=== PATIENT | male | born 1985 | race Caucasian/White ===

== ENCOUNTER 2019-07-19 07:48 | Outpatient (CLI) | payer BC, SELFPAY ==
[2019-07-19 08:31] LABS: Basophils Percent Auto 0.4 % (0.2-1.2); Eosinophils Absolute Auto 0.2 K/mm3 (0-0.3); Eosinophils Percent Auto 3.3 % (0-4.4); Hematocrit 46.9 % (42.0-52.0); Hemoglobin 16.5 g/dL (14.0-18.0); Immature Granulocyte Absolute 0.02 K/mm3 (0.00-0.031); Immature Granulocyte Percent A 0.3 % (0-0.5); Lymphocytes Absolute Auto 2.19 K/mm3 (0.9-3.2); Lymphocytes Percent Auto 30.5 % (18.3-44.2); Mean Corpuscular HGB Conc 35.2 g/dl (32-36); Mean Corpuscular Hemoglobin 31.3 pg (26-34); Mean Platelet Volume 9.6 fl (7.4-10.4); Monocytes Absolute Auto 0.6 K/mm3 (0.1-0.6); Monocytes Percent Auto 8.6 % (2.6-8.5); Neutrophils Absolute Auto 4.1 K/mm3 (1.3-6.7); Neutrophils Percent Auto 56.9 % (45.5-73.1); Platelet Count Result 289 k/mm3 (150-375); Red Blood Count 5.27 M/mm3 (4.6-6.20); Red Cell Distribution Width 11.9 % (11.5-14.5); White Blood Count 7.2 K/mm3 (4.5-10.0)
[2019-07-19 08:45] LABS: Hemoglobin A1C 7.4 % (<5.7)
[2019-07-19 08:47] LABS: Alanine Aminotransferase 25 U/L (4-50); Albumin Level 4.5 g/dL (3.5-5.1); Alkaline Phosphatase 93 U/L (38-126); Aspartate Amino Transferase 37 U/L (17-59); Bilirubin,Total 0.7 mg/dL (0.2-1.3); Blood Urea Nitrogen 11 mg/dL (9-20); Calcium 9.5 mg/dL (8.4-10.2); Carbon Dioxide 29 mmol/L (22-30); Chloride 98 mmol/L (98-107); Cholesterol 159 mg/dL (0-200); Estimated Glomerular Filt Rate > 60; Glucose 192 mg/dL (75-110); HDL Direct 51 mg/dL; Potassium 4.7 mmol/L (3.4-5.0); Sodium 139 mmol/L (137-145); Triglycerides 113 mg/dL (<150)
[2019-07-19 08:59] LABS: LDL Cholesterol Direct 90 mg/dL
[2019-07-19 11:38] LABS: MALB Creatinine Ratio 4.4 mg/g (0-30)
== END 2019-07-19 07:49 | disposition home or self-care (01) ==
PROVIDERS: PCP Physician Assistant; Visit Provider Internal Medicine Endocrinology, Diabetes & Metabolism
DX: E10.9 Type 1 diabetes mellitus without complications (principal)
CPT/HCPCS: 36415; 80053; 80061; 82043; 83036; 85025

== ENCOUNTER 2020-01-31 07:17 | Outpatient (CLI) | payer BC, SELFPAY ==
[2020-01-31 07:40] LABS: Basophils Percent Auto 0.5 % (0.2-1.2); Eosinophils Absolute Auto 0.2 K/mm3 (0-0.3); Eosinophils Percent Auto 2.9 % (0-4.4); Hematocrit 45.1 % (42.0-52.0); Hemoglobin 16.2 g/dL (14.0-18.0); Immature Granulocyte Absolute 0.02 K/mm3 (0.00-0.031); Immature Granulocyte Percent A 0.2 % (0-0.5); Lymphocytes Absolute Auto 2.52 K/mm3 (0.9-3.2); Lymphocytes Percent Auto 31.4 % (18.3-44.2); Mean Corpuscular HGB Conc 35.9 g/dl (32-36); Mean Corpuscular Hemoglobin 32.2 pg (26-34); Mean Corpuscular Volume 89.7 fl (80-100); Mean Platelet Volume 9.4 fl (7.4-10.4); Monocytes Absolute Auto 0.6 K/mm3 (0.1-0.6); Neutrophils Absolute Auto 4.6 K/mm3 (1.3-6.7); Platelet Count Result 266 k/mm3 (150-375); Red Blood Count 5.03 M/mm3 (4.6-6.20); Red Cell Distribution Width 11.8 % (11.5-14.5)
[2020-01-31 07:52] LABS: Hemoglobin A1C 6.7 % (<5.7)
[2020-01-31 07:57] LABS: Alanine Aminotransferase 29 U/L (4-50); Albumin Level 4.3 g/dL (3.5-5.1); Alkaline Phosphatase 96 U/L (38-126); Anion Gap 6 mmol/L (8-16); Aspartate Amino Transferase 34 U/L (17-59); Bilirubin,Total 0.5 mg/dL (0.2-1.3); Blood Urea Nitrogen 13 mg/dL (9-20); Calcium 9.1 mg/dL (8.4-10.2); Carbon Dioxide 27 mmol/L (22-30); Chloride 102 mmol/L (98-107); Cholesterol 181 mg/dL (0-200); Estimated Glomerular Filt Rate > 60; Glucose 236 mg/dL (75-110); HDL Direct 54 mg/dL; Potassium 4.2 mmol/L (3.4-5.0); Sodium 135 mmol/L (137-145); Triglycerides 68 mg/dL (<150)
[2020-01-31 08:09] LABS: LDL Cholesterol Direct 104 mg/dL
[2020-01-31 12:56] LABS: Creatinine Urine 46.5 mg/dL
[2020-01-31 13:32] LABS: MALB Creatinine Ratio < 12.9 mg/g (0-30); Microalbumin Urine Random < 6.0 mg/L (0-16.7)
== END 2020-01-31 07:18 | disposition home or self-care (01) ==
PROVIDERS: PCP Physician Assistant; Visit Provider Internal Medicine Endocrinology, Diabetes & Metabolism
DX: E10.9 Type 1 diabetes mellitus without complications (principal)
CPT/HCPCS: 36415; 80053; 80061; 82043; 83036; 85025

== ENCOUNTER 2020-07-23 15:21 | Outpatient (CLI) | payer BC, SELFPAY ==
[2020-07-23 16:24] LABS: Alanine Aminotransferase 18 U/L (4-50); Albumin Level 4.3 g/dL (3.5-5.1); Alkaline Phosphatase 81 U/L (38-126); Anion Gap 5 mmol/L (8-16); Aspartate Amino Transferase 28 U/L (17-59); Bilirubin,Total 0.4 mg/dL (0.2-1.3); Blood Urea Nitrogen 11 mg/dL (9-20); Calcium 8.9 mg/dL (8.4-10.2); Carbon Dioxide 30 mmol/L (22-30); Chloride 102 mmol/L (98-107); Cholesterol 174 mg/dL (0-200); Estimated Glomerular Filt Rate > 60; Glucose 204 mg/dL (75-110); HDL Direct 53 mg/dL; Potassium 4.3 mmol/L (3.4-5.0); Sodium 137 mmol/L (137-145); Triglycerides 98 mg/dL (<150)
[2020-07-23 16:26] LABS: Hemoglobin A1C 7.1 % (<5.7)
[2020-07-23 16:35] LABS: LDL Cholesterol Direct 100 mg/dL
[2020-07-23 16:48] LABS: Creatinine Urine 67.3 mg/dL
[2020-07-23 17:23] LABS: MALB Creatinine Ratio < 8.9 mg/g (0-30); Microalbumin Urine Random < 6.0 mg/L (0-16.7)
== END 2020-07-23 15:22 | disposition home or self-care (01) ==
LOC: ANHLAB 15:23
PROVIDERS: PCP Physician Assistant; Visit Provider Internal Medicine Endocrinology, Diabetes & Metabolism
DX: E10.65 Type 1 diabetes mellitus with hyperglycemia (principal)
CPT/HCPCS: 36415; 80053; 80061; 82043; 83036

== ENCOUNTER 2021-01-25 09:59 | Emergency (ER) | payer BC, SELFPAY ==
[2021-01-25 10:06] VITALS: BP 142/85; PULSE 92; RESP 16; TEMP 36.8; O2SAT 100
--- NOTE | 2021-01-25 10:08 | ED.SKABFB ---
HPI - Skin/Abscess/Foreign Bdy General Chief complaint: Skin/Abscess/Foreign Body Stated complaint: pos infected belly button Time Seen by Provider: 01/25/21 10:08 Source: patient and RN notes reviewed Mode of arrival: ambulatory Limitations: no limitations History of Present Illness HPI narrative: 35-year-old male with history of type 1 diabetes, no other significant medical history presents with concern for an abscess in his umbilicus. Reports similar history of this infection in the past for which he had the area lanced and was put on antibiotics. Reports he has been using Bactroban to the area. Reports redness to the skin surrounding the umbilical area, reports tenderness to the area. He denies body aches, fever, chills, sweats. Denies any current drainage from the area. MD complaint: abscess/boil Related Data Home Medications Medication Instructions Recorded Confirmed insulin aspart U-100 [Novolog 01/25/21 U-100 Insulin aspart] phentermine mg 01/25/21 Allergies Allergy/AdvReac Type Severity Reaction Status Date / Time vancomycin Allergy Mild unknown Verified 01/25/21 10:45 Review of Systems Review of Systems: CONSTITUTIONAL: Denies malaise, chills, sweats, or fever. GASTROINTESTINAL: Denies abdominal pain, nausea, vomiting, diarrhea SKIN: Reports possible abscess to the umbilicus, surrounding erythema and tenderness MUSCULOSKELETAL: Denies myalgia. All systems reviewed & are unremarkable except as noted in HPI and below PMFSH Family History Family History (Updated 12/24/15 @ 23:21 by DOCTOR UNKNOWN) Mother Family history of migraine headaches Hypertension Patient's mother is in good health Grandparent Family history of coronary artery disease Family history of congestive heart failure Family history of lung cancer Acute myocardial infarction Father Family history of malignant neoplasm of kidney Hypertension Patient's father is in good health Sibling Patient's sister is in good health Social History Social History Smoking status: Never smoker Second hand tobacco smoke exposure: No Smoking end date: 05/28/11 Alcohol intake: current Comments At time of signature, agree with nursing past medical, surgical, social and family history. There is no relevant family history pertinent to the presenting complaint Exam Narrative: GENERAL: Well-appearing, well-nourished, and in no acute distress. HEAD: Normocephalic, atraumatic. EYES: PERRLA, conjunctivae clear ENT: Mucous membranes moist. NECK: Supple. CHEST: Clear to auscultation. No respiratory distress. HEART: Regular rate and rhythm. SKIN: Warm, dry. Superficial erythema noted surrounding the umbilicus approximately 17 cm in diameter 2 small pustules noted inside the umbilicus, tender to touch without induration or warmth noted, small amount of fluctuance noted to the pustules NEURO: Alert and oriented x3. PSYCH: Normal mood and affect Course Course Emergency Course: Chest wound culture and possible need for antibiotic change, inform patient he will get a phone call if his antibiotic needs to be changed. Patient is aware of diagnosis, understands and agrees to treatment plan. Anticipatory guidance given. Patient agrees to follow-up as directed and is aware of reasons to seek care at the emergency department. Portions of this record may have been created with voice recognition software Vital Signs Vital signs: Reviewed. Pt has been instructed to follow up with his primary care provider within the next week regarding his elevated blood pressure today. Procedures Abscess I/D abdomen: Date of Incision: 01/25/21 Time of Incision: 10:15 Local Anesthetic: lidocaine 1% Amount of anesthesia used (mL): 3 Technique: incised with #11 blade Amount of fluid expressed (mL): 5 Irrigation: Yes Packing used?: iodoform I&D Results: Pus MDM - Skin/Abscess/Foreign Bdy MDM
== END 2021-01-25 10:57 | disposition home or self-care (01) ==
PROVIDERS: Emergency Provider Nurse Practitioner; PCP Physician Assistant
DX: L02.216 Cutaneous abscess of umbilicus (principal); E10.9 Type 1 diabetes mellitus without complications
CPT/HCPCS: 10061; 87070; 87075; 87076; 87077; 87185; 87186; 87205; 99213; G0463

== ENCOUNTER 2022-06-14 07:44 | Outpatient (CLI) | payer BC, SELFPAY ==
--- NOTE | 2022-06-14 | EST_ITS ---
Patient Info Name: Michelet Nielson Age: 37 years : 1985 Gender: Male Ht: 68 in Wt: 185 lbs BSA: 2.03 m2 HR: 76 bpm BP: 120 / 73 mmHg Heart Rhythm: Sinus Rhythm Exam Date: 06/14/2022 8:11 AM Exam Location: [facility] Stress Patient Status: Outpatient Admit Date: 06/14/2022 Staff Ordering Physician: Xiomara, Santa CHIU Attending Provider: Xiomara, Santa CHIU Exercise Technologist: Tomasa Hutchison, BETTINA Exercise Physician: Scooby Bonilla DO Exam Type: CA stress test treadmill Study Info Indications Z82.49 - FM HX HEART DISEASE A treadmill exercise stress test was performed. Summary 1. 1. Negative Felix exercise stress test for ischemic ST changes by ECG criteria. 2. 2. Good functional capacity, achieving 12 METs of workload. 3. 3. Hypertensive response to exercise. 4. 4. Appropriate HR response to exercise. 5. 5. Appropriate HR recovery at 1 minute post exercise. 6. 6. No imaging with stress testing. 7. 7. Patient informed of the above results. Protocol: Felix Stress ECG Details Stage: REST Duration (min): 1 min : 14 sec Speed (mph): 0.0 Grade (%): 0 HR (bpm): 78 SBP (mmHg): 120 DBP (mmHg): 73 METS: --- Stage: REST Duration (min): 3 min : 58 sec Speed (mph): 0.0 Grade (%): 0 HR (bpm): 76 SBP (mmHg): 120 DBP (mmHg): 73 METS: --- Stage: STAGE 1 Duration (min): 1 min : 0 sec Speed (mph): 1.7 Grade (%): 10 HR (bpm): 113 SBP (mmHg): 120 DBP (mmHg): 73 METS: --- Stage: STAGE 1 Duration (min): 2 min : 0 sec Speed (mph): 1.7 Grade (%): 10 HR (bpm): 120 SBP (mmHg): 120 DBP (mmHg): 73 METS: --- Stage: STAGE 1 Duration (min): 3 min : 0 sec Speed (mph): 1.7 Grade (%): 10 HR (bpm): 115 SBP (mmHg): 135 DBP (mmHg): 65 METS: --- Stage: STAGE 2 Duration (min): 1 min : 0 sec Speed (mph): 2.5 Grade (%): 12 HR (bpm): 132 SBP (mmHg): 135 DBP (mmHg): 65 METS: --- Stage: STAGE 2 Duration (min): 2 min : 0 sec Speed (mph): 2.5 Grade (%): 12 HR (bpm): 138 SBP (mmHg): 166 DBP (mmHg): 62 METS: --- Stage: STAGE 2 Duration (min): 3 min : 0 sec Speed (mph): 2.5 Grade (%): 12 HR (bpm): 140 SBP (mmHg): 166 DBP (mmHg): 62 METS: --- Stage: STAGE 3 Duration (min): 1 min : 0 sec Speed (mph): 3.4 Grade (%): 14 HR (bpm): 152 SBP (mmHg): 198 DBP (mmHg): 73 METS: --- Stage: STAGE 3 Duration (min): 2 min : 0 sec Speed (mph): 3.4 Grade (%): 14 HR (bpm): 159 SBP (mmHg): 198 DBP (mmHg): 73 METS: --- Stage: STAGE 3 Duration (min): 3 min : 0 sec Speed (mph): 3.4 Grade (%): 14 HR (bpm): 162 SBP (mmHg): 206 DBP (mmHg): 74 METS: --- Stage: STAGE 4 Duration (min): 1 min : 0 sec Speed (mph): 4.2 Grade (%): 16 HR (bpm): 166 SBP (mmHg): 206 DBP (mmHg):
== END 2022-06-14 07:45 | disposition home or self-care (01) ==
PROVIDERS: PCP Physician Assistant; Visit Provider Physician Assistant
DX: Z82.49 Family history of ischemic heart disease and other diseases of the circulatory system (principal)
CPT/HCPCS: 93017

== ENCOUNTER 2025-02-12 10:07 | Emergency (ER) | payer OTHER, BC, SELFPAY ==
--- NOTE | ~2025-02-12 | XR_ITS ---
EXAMINATION: XR knee RT min 4V, 02/12/2025 10:50 CDT HISTORY: injury COMPARISON: No comparisons available. Findings: No acute fracture or malalignment. No significant degenerative changes. Soft tissues unremarkable. Impression: No acute fracture or malalignment. Reviewed, dictated and finalized at location A. Impression: No acute fracture or malalignment.
[2025-02-12 10:11] VITALS: BP 114/63; PULSE 106; RESP 16; TEMP 36.3; O2SAT 97
--- OUTSIDE RECORDS SUMMARY | 2025-02-12 10:45 | XMS_ITS | Clinical Summary ---
Author Organization [address] Address [address] [place] [id number] Care Team Providers Care Wood Die Maker Name Role Phone DomingoAlana reesejim BELLO Primary Care Pr ovider Allergies No known active allergies Medications Accu-Chek Guide Glucose Meter misc as directed 3 Active glucagon (Baqsimi) 3 mg/actuation spray,non-aerosol Administer 1 spray into one nostril as needed (for low sugars) 2 each 3 3 Active Accu-Chek Guide test strips strip Use for BG monitoring 10 x day 900 each 3 3 Active dextroamphetamine -amphetamine (ADDERALL) 20 mg tablet Take 1 tablet (20 mg total) by mouth daily 4 Active ALPRAZolam (XANAX) 0.25 mg tablet Take 1 tablet twice a day by oral route as needed. Active buPROPion XL (WELLBUTRIN XL) 300 mg 24 hr tablet TK ONE T PO QD Activ e chlorhexidine (PERIDEX) 0.12 % oral rinse Active HYDROcodone-aceta minophen (NORCO) 5-325 mg per tablet Active Ozempic 1 mg/dose (4 mg/3 mL) pen injector injectionIndicati ons:Type 1 diabetes mellitus with hyperglycemia (HCC) Inject 1 mg under the skin every 7 days 9 mL 5 Active blood-glucose sensor (Dexcom G7 Sensor) deviceIndications :Type 1 diabetes mellitus with hyperglycemia (HCC) Continuous glucose monitor. Change every 10 days. 10 each 3 5 Active NovoLOG 100 unit/mL vial for injectionIndicati ons:Type 1 diabetes mellitus with hyperglycemia (HCC) Use via insulin pump , up to 90 units daily 90 mL 3 5 Active Active Problems Problem Noted Date Diagnosed Date Insulin pump status 10/10/2024 Assessment & Plan (10/10/2024 10:04 AM CDT): No pump setting changes. Adjusts pump settings on his own. Does not wish to share Dexcom to our office. Type 1 diabetes mellitus with hyperglycemia 03/28 Assessment & Plan (10/10/2024 10:04 AM CDT): Chronic problem. A1c improved from 7.2% 03/26/24 to 6.7% 09/28/24. Current medications: Ozempic 1mg weekly Novolog via medtronic 770G insulin pump BR: 12a 1.3, 0430a 1.25, 8p 1.25 AIT 4 hours CF 1-1.5:50>150 UTD on labs. UTD on DM eye exam. Letter sent to get copy of report from [facility] from -07/2024. Discussed with Michelet Nielson: Strive for regular exercise (30min most days) and diet (get at least 4-5 servings of fruit and veggies daily, avoid processed foods, increase lean protein intake and decrease carb portions as well as fruit juices, regular soda & desserts). Watch carbs and simple sugars. Check the blood sugar: 8-10x/day. Check the feet daily for skin breakdown and infection. Resolved Problems Problem Noted Date Diagnosed Date Resolved Date Type 1 diabetes mellitus without complication 10/12/19 14 10/09/2024 Overview (09/01/2016): DMI WO CMP UNCNTRLD Assessment & Plan (04/11/2024 10:57 AM [employer]): Chronic problem. A1c 6.6% 04/2023 but increased to 7.1% last week. Has historically declined CGMs but would like to trial Dexcom G7. Sample applied & set up on his phone. Prescription sent to [facility]. Code given for him to connect to our office (he didn't think that he would). Current medications: Ozempic 1mg weekly Novolog via medtronic 770G insulin pump BR: 12a 1.35 AIT 4 hours CF 1-1.5:50>150 UTD on labs. UTD on DM eye exam (08/09/23 no DMR. [facility]). Discussed with Michelet Nielson: Strive for regular exercise (30min most days) and diet (get at least 4-5 servings of fruit and veggies daily, avoid processed foods, increase lean protein intake and decrease carb portions as well as fruit juices, regular soda & desserts). Watch carbs and simple sugars. Check the blood sugar: 8-10x/day; Dexcom G7. Check the feet daily for skin breakdown and infection. Assessment & Plan (10/11/2023 10:17 AM CDT): Chronic problem. A1c 6.6% 04/2023 but increased to 7.1% last week. Current medications: Ozempic 1mg weekly Novolog via medtronic 770G insulin pump Setting for #1 BR: 12a 1.6, 430a 1.3 Setting for #2BR (active now): 12a 1.15, 430a 1.3 AIT 4 hours CF 1-1.5:50>150 UTD on labs. Release signed to get copy of PCP last month. UTD on DM eye exam. Discussed with Michelet Nielson: Strive for regular exercise (30min most days) and diet (get at least 4-5 servings of fruit and veggies daily, avoid processed foods, increase lean protein intake and decrease carb portions as well as fruit juices, regular soda & desserts). Watch carbs and simple sugars. Check the blood sugar: 8-10x/day. Check the feet daily for skin breakdown and infection. Assessment & Plan (06/05/2023 3:29 PM [employer]): Chronic problem. At goal (6.6% 04/2023), improved from 7.2% 01/30/23. Current medications: Ozempic 1mg weekly Novolog via medtronic 770G insulin pump Setting for #1 BR (active now): 12a 1.4, 430a 1.2 Setting for #2 BR: 12a 1.6, 430a 1.3 AIT 4 hours CF 1-1.5:50>150 DM eye exam due; has not had in >1yr. Will update MA/Cr today. All other labs UTD (See scanned media). Discussed with Michelet Nielson: Strive for regular exercise (30min most days) and diet (get at least 4-5 servings of fruit and veggies daily, avoid processed foods, increase lean protein intake and decrease carb portions as well as fruit juices, regular soda & desserts). Watch carbs and simple sugars. Check the blood sugar: 8-10x/day (12-14 if working [place] shift). Check the feet daily for skin breakdown and infection. Assessment & Plan (01/30/2023 4:19 PM CDT): Hba1c was Lab Results Component Value Date HGBA1C 7.2 01/30/2023 today, indicating suboptimal DM control Goal Hba1c and blood glucose explained Diet and exercise were advised Prevention and treatment of hyypoglcyemia were discussed with the patient Blood glucose monitoring : not interested in CGM Might benefit from Eversense. Adjustment to medications: Continue pump at current settings Continue Ozempic Risks of hypoglycemia was discussed Immunizations Immunization Administration Dates Next Due Influenza, Trivalent, Preservative Free, Intramu scular 02/12/2009 Pneumococcal Polysaccharide PPV23 03/28/2006 Medical History Medical History Date Comments Hx Other Medical ankle fx Type 1 diabetes mellitus Diabete s type 1 Depression Depression Family History Medical History Relation Name Comments Other Other No family histo ry of Diabetes mellitus; Relation Name Status Comments Other Social History Tobacco Use Types Packs/Day Years Used Date Smoking Tobacco: Never Smokeless Tobacco: Never Tobacco Cessation:Counseling Given: No Alcohol Use Standard Drinks/Week Comments Yes 0 (1 standard drink = 0.6 oz pur e alcohol) Sex and Gender Information Value Date Recorded Sex Assigned at Not on file Legal Sex Male 10:57 PM [employer] Gender Identity Not on file Sexual Orientation Not on file Obstetrics History Last Filed Vital Signs Vital Sign Reading Time Taken Comments Blood Pressure 122/80 10/10/2024 9:05 AM CDT Pulse 86 10/10/2024 9:05 AM CDT Temperature - - Respiratory Rate 18 04/11/2024 9:48 AM [employer] Oxygen Saturation - - Inhaled Oxygen Concentration - - Weight 84.4 kg (186 lb 1.6 oz) 10/10/2024 9:05 A M CDT Height 172.7 cm (5' 8) 10/10/2024 9:05 AM CDT Body Mass Index 28.3 10/10/2024 9:05 AM CDT Plan of Treatment Health Maintenance Due Date Last Done Comments Depression Screening 1985 Hepatitis C Screening 1985 DTaP/Tdap/Td Vaccine (1 - Tdap) 02/14/1995 Varicella Vaccines (1 of 2 - 13+ 2-dose series) 02/14/1997 Hepatitis B Screening 02/14/2002 Regular Well Visit/Exam 18-64 02/14/2002 Pneumococcal vaccine <65 (2 of 2 - PCV) 03/28/2007 03/28/2006 HPV Vaccines (1 - 3-dose SCD M series) 02/14/2011 Albumin Creatinine Ratio, Urine 11/20/2024 , 06/08/2023 Influenza Vaccine (#1) 2025 03/26/2013, 2008 TSH Level 03/26/2025 03/26/2024, 05/22/2023 Hemoglobin A1C 03/31/2025 09/28/2024, 02/27, 10/02/2023, Additional history exists Lipid Panel 09/28/2025 09/28/2024, 02/27, 05/22/2023, Additional history exists eGFR 09/28/2025 09/28/2024, 05/22/2023 Foot Exam 10/10/2025 10/10/2024, 03/28, 01/30/2023 Dilated Eye Exam 08/11/2026 08/11/2024, , 08/09/2023 Procedures Procedure Name Priority Date/Time Associated Diagnosis Comments COMPREHENSIVE METABOLIC PANEL Routine 09/28/2024 5:07 AM CDT HEMOGLOBIN A1C Routine 09/28/2024 5:07 AM CDT LIPID PANEL Routine 09/28/2024 5:07 AM CDT HM DIABETES EYE EXAM Routine 08/11/2024 7:42 AM CDT TSH Routine 03/26/2024 6:37 AM CDT ALBUMIN CREATININE RATIO, URINE Routine 11/21/2023 2:15 PM CDT Type 1 diabetes mellitus without complication (HCC) from Last 3 Months or Most Recently Relevant to Health Maintenance Results * (ABNORMAL) Hemoglobin A1c (09/28/2024 5:07 AM CDT) SCRIBED Hemoglobin A1c 6.7(A) 4.0 - 5.6 % [facility] Blood 09/28/2024 5:07 AM CDT Historical Provider MD LAB BLOOD ORDERABLES Edit ed Result - Final Performing Organization Address [facility] de Phone Number [facility] * Lipid panel (09/28/2024 5:07 AM CDT) SCRIBED Cholesterol, Total 166 30 - 199 mg/dL [facility] SCRIBED Triglycerides 92 <=149 mg/dL [facility] SCRIBED HDL 64 >=40 mg/dL [facility] SCRIBED LDL 83 <=129 mg/dL [facility] Scribed Non-HDL Cholesterol 102 NONE mg/dL [facility] SCRIBED Total Cholesterol/HDL Ratio 166 NONE [facility] Blood 09/28/2024 5:07 AM CDT us Historical Provider MD LAB BLOOD ORDERABLES Edit ed Result - Final Performing Organization Address [facility] Co de Phone Number [facility] * (ABNORMAL) Comprehensive metabolic panel (09/28/2024 5:07 AM CDT) SCRIBED Sodium 138 135 - 146 mmol/L [facility] SCRIBED Potassium 4.3 3.5 - 5.3 mmol/L [facility] SCRIBED Chloride 102 98 - 110 mmol/L [facility] SCRIBED Carbon Dioxide 32 20 - 32 mmol/L [facility] SCRIBED Urea Nitrogen (BUN) 11 7 - 25 mg/dl [facility] SCRIBED Creatinine 0.87 0.60 - 1.29 mg/dl [facility] SCRIBED Glucose 143(A) 65 - 99 mg/dl [facility] SCRIBED Calcium 9.9 8.6 - 10.3 mg/dl [facility] SCRIBED Bilirubin 0.7 0.2 - 1.2 mg/dl [facility] SCRIBED Plasma Protein 7.1 6.1 - 8.1 g/dl [facility] SCRIBED Albumin 4.6 3.6 - 5.1 g/dl [facility] SCRIBED Alkaline Phosphatase 84 36 - 130 Units/L [facility] SCRIBED Alanine Transaminase (ALT) 26 9 - 46 Units/L [facility] SCRIBED Aspartate Transaminase (AST) 27 10 - 40 Units/L [facility] SCRIBED eGFR 112 >=60 - NA [facility] Blood 09/28/2024 5:07 AM CDT Historical Provider LAB BLOOD ORDERABLES Edit ed Result - Final Performing Organization Address City/[facility]/ZIP Co de Phone Number [facility] * (ABNORMAL) DIABETES EYE EXAM (08/11/2024 7:42 AM CDT) Historical Provider HEALTH MAINTENANCE Edited Result - Final * TSH (03/26/2024 6:37 AM CDT) Pathologist [facility] Scribed TSH 1.45 0.40 - 4.50 mcU/mL [facility] Blood 03/26/2024 6:37 AM CDT Historical Provider LAB BLOOD ORDERABLES Edit ed Result - Final [facility] * Albumin Creatinine Ratio, Urine (11/21/2023 2:15 PM CDT) Creatinine, ur 29 20 - 320 mg/dL [facility] Microalbumin, ur 0.2 See Note: mg/dL [facility] Comment: Reference Range: Reference Range Not established Microalbumin/creat ratio 7 <30 mg/g creat [facility] Comment: The ADA defines abnormalities in albumin excretion as follows: Albuminuria Category Result (mg/g creatinine) Normal to Mildly increased <30 Moderately increased 30-299 Severely increased > OR = 300 The ADA recommends that at least two of three specimens collected within a 3-6 month period be abnormal before considering a patient to be within a diagnostic category. Urine 11/21/2023 2:15 PM CDT 11/21/2023 2:16 PM CDT Narrative [facility] - 11/22/2023 3:14 PM CDT FASTING:NO FASTING: NO us Sanjuana Pollard AWS SOLUTION ARCHITECT LAB URINE ORDERABLES Griselda l Result [facility] [id number] [place] [id number] from Last 3 Months or Most Recently Relevant to Health Maintenance [place] [id number] [employer] [place] [employer] [place] Care Teams Wood Die Maker Relationship Specialty Start Date End Date Santa Solano [place] PCP - General Physician Continuing Education Specialist 10/11/23
--- OUTSIDE RECORDS SUMMARY | 2025-02-12 10:45 | XMS_ITS | Patient Health Record ---
Author Organization [facility] [employer] Address [address] [facility] [address] [place] [address] Care Team Providers Care Anesthetic Assistant Name Role Phone Jovi Doherty Unavailable [phone] Reason For Referral No Information Plan Of Treatment No Information
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
[2025-02-12 11:27] VITALS: RESP 16
--- OUTSIDE RECORDS SUMMARY | 2025-02-12 11:34 | XMS_ITS | Clinical Summary ---
Author Organization [address] Address [address] [place] [id number] Care Team Providers Care Tour Manager Name Role Phone DomingoAlana reesejim BELLO Primary [...] sent to get copy of report from [facility] from -07/2024. Discussed with Michleet Nielson: Strive for regular exercise (30min most [...] UNCNTRLD Assessment & Plan (04/11/2024 10:57 AM RN PERITONEAL DIALYSIS): Chronic problem. A1c 6.6% 04/2023 but increased to 7.1% last week. Has historically declined CGMs but would like to trial Dexcom G7. Sample applied & set up on his phone. Prescription sent to [facility]. Code given for him to connect to our office (he didn't think that he would). Current medications: Ozempic 1mg weekly Novolog via medtronic 770G insulin pump BR: 12a 1.35 AIT 4 hours CF 1-1.5:50>150 UTD on labs. UTD on DM eye exam (08/09/23 no DMR. [facility]). Discussed with Michelet Nielson: Strive for [...] infection. Assessment & Plan (06/05/2023 3:29 PM RN PERITONEAL DIALYSIS): Chronic problem. At goal (6.6% 04/2023), improved [...] on file Legal Sex Male 10:57 PM RN PERITONEAL DIALYSIS Gender Identity Not on file Sexual Orientation Not on file Obstetrics History Last Filed Vital Signs Vital Sign Reading Time Taken Comments Blood Pressure 122/80 10/10/2024 9:05 AM CDT Pulse 86 10/10/2024 9:05 AM CDT Temperature - - Respiratory Rate 18 04/11/2024 9:48 AM RN PERITONEAL DIALYSIS Oxygen Saturation - - Inhaled Oxygen Concentration [...] ed Result - Final Performing Organization Address [facility] de Phone Number [facility] * Lipid panel [...] ed Result - Final Performing Organization Address [facility] Co de Phone Number [facility] * (ABNORMAL) [...] ed Result - Final Performing Organization Address City/[facility]/ZIP Co de Phone Number [facility] * (ABNORMAL) DIABETES EYE EXAM (08/11/2024 7:42 AM CDT) Historical Provider HEALTH MAINTENANCE Edited Result - Final * TSH (03/26/2024 6:37 AM CDT) Pathologist [facility] Scribed TSH 1.45 0.40 - 4.50 mcU/mL [...] CDT FASTING:NO FASTING: NO us Sanjuana Pollard DEVELOPMENT WRITER LAB URINE ORDERABLES Griselda l Result [facility] [id number] [place] [id number] from Last 3 Months or Most Recently Relevant to Health [place] [id number] Cobra Stylet MD Cobra Stylet MD Care Teams Tour Manager Relationship Specialty Start Date End Date [place] PCP - General Physician [employer] Mechanic 10/11/23
== END 2025-02-12 11:30 | disposition home or self-care (01) ==
PROVIDERS: Emergency Provider Emergency Medicine; PCP Physician Assistant
DX: S80.01XA Contusion of right knee, initial encounter (principal); E11.9 Type 2 diabetes mellitus without complications; Z87.891 Personal history of nicotine dependence; Z79.4 Long term (current) use of insulin; X58.XXXA Exposure to other specified factors, initial encounter
CPT/HCPCS: 73564; 99283